=== PATIENT | female | born 1945 | race Caucasian/White ===

== ENCOUNTER 2016-05-24 17:00 | Outpatient (CLI) | payer MEDICARE ==
[2016-05-24 17:33] LABS: Anion Gap 12 mmol/L (10-20); BUN (Urea Nitrogen) 14 mg/dL (9.8-20.1); Calc. Creatinine Clearance 0 mL/min (70-130); Calcium 9.6 mg/dL (7.8-10.44); Carbon Dioxide 27 mmol/L (23-31); Chloride 102 mmol/L (98-107); Estimated GFR-MDRD 76; Glucose 90 mg/dL (80-115); Magnesium 2.4 mg/dL (1.6-2.6); Potassium 4.2 mmol/L (3.5-5.1); Sodium 137 mmol/L (136-145)
== END 2016-05-24 17:01 | disposition home or self-care (01) ==
LOC: HPCALD 17:00
PROVIDERS: ATTEND Family Medicine
DX: R42 Dizziness and giddiness (principal); K91.89 Other postprocedural complications and disorders of digestive system; K21.9 Gastro-esophageal reflux disease without esophagitis; Z98.890 Other specified postprocedural states
CPT/HCPCS: 36415; 80048; 82607; 83735

== ENCOUNTER 2017-05-21 10:22 | Emergency (ER) | payer MEDICARE ==
[2017-05-21] MEDS ORDERED: predniSONE 20 MG TAB ONE (10:34)
== END 2017-05-21 10:45 | disposition home or self-care (01) ==
LOC: BURERS 10:22
DX: L25.9 Unspecified contact dermatitis, unspecified cause (principal); E78.5 Hyperlipidemia, unspecified; I10 Essential (primary) hypertension; Z87.891 Personal history of nicotine dependence
CPT/HCPCS: 99282; J7506

== ENCOUNTER 2017-06-06 12:50 | Inpatient (IN) | payer MEDICARE ==
[2017-06-06] MEDS ORDERED: Prevnar 13-Val Conj/PF 0.5 ML SYRINGE IM ONE (14:45)
[2017-06-06] MEDS ORDERED: Ondansetron ODT 4 MG TAB PO PRN (17:28)
[2017-06-06] MEDS ORDERED: Cyclobenzaprine 10 MG TAB PO PRN ×2 (17:28→18:30)
[2017-06-06] MEDS: Scopolamine 1.5 mg/72 hour Patch TD SCH ×2 (18:05→18:08)
[2017-06-06] MEDS: traMADol HCl 50 MG TAB PO SCH (18:09)
[2017-06-06] MEDS: Acetaminophen 500 MG TAB PO SCH (18:11)
[2017-06-06] MEDS: Enoxaparin Sodium 40 MG/0.4 ML SYRINGE SC SCH (21:01)
[2017-06-06] MEDS: Famotidine 20 MG TAB PO SCH (21:02)
[2017-06-06] MEDS: Senokot S 8.6-50 MG TAB PO SCH (21:03)
[2017-06-06] MEDS: Simvastatin 20 MG TAB PO SCH (21:03)
[2017-06-06] MEDS: Gabapentin 100 MG CAP PO SCH (21:03)
[2017-06-06] MEDS: Ibuprofen 200 MG TAB PO SCH (21:04)
[2017-06-07] MEDS: traMADol HCl 50 MG TAB PO SCH ×4 (00:33→18:35)
[2017-06-07] MEDS: Acetaminophen 500 MG TAB PO SCH ×5 (00:33→18:35)
[2017-06-07] MEDS: Ibuprofen 200 MG TAB PO SCH ×4 (06:33→23:17)
[2017-06-07] MEDS: Polyethylene Glycol 3350 17 GM Packet PO SCH (08:31)
[2017-06-07] MEDS: Lisinopril 10 MG TAB PO SCH (08:32)
[2017-06-07] MEDS: Multivitamin W/ Minerals 1 TAB PO SCH (08:32)
[2017-06-07] MEDS: Senokot S 8.6-50 MG TAB PO SCH ×2 (08:32→20:07)
[2017-06-07] MEDS: Famotidine 20 MG TAB PO SCH ×2 (08:33→20:07)
[2017-06-07] MEDS: Gabapentin 100 MG CAP PO SCH ×3 (08:33→20:07)
[2017-06-07] MEDS: Enoxaparin Sodium 40 MG/0.4 ML SYRINGE SC SCH (20:06)
[2017-06-07] MEDS: Simvastatin 20 MG TAB PO SCH (20:06)
[2017-06-08] MEDS: traMADol HCl 50 MG TAB PO SCH ×5 (06:04→23:58)
[2017-06-08] MEDS: Ibuprofen 200 MG TAB PO SCH ×3 (06:05→22:03)
[2017-06-08] MEDS: Acetaminophen 500 MG TAB PO SCH ×5 (06:06→23:58)
[2017-06-08] MEDS: Polyethylene Glycol 3350 17 GM Packet PO SCH (08:23)
[2017-06-08] MEDS: Lisinopril 10 MG TAB PO SCH (08:24)
[2017-06-08] MEDS: Multivitamin W/ Minerals 1 TAB PO SCH (08:24)
[2017-06-08] MEDS: Famotidine 20 MG TAB PO SCH ×2 (08:24→20:50)
[2017-06-08] MEDS: Gabapentin 100 MG CAP PO SCH ×3 (08:24→20:50)
[2017-06-08] MEDS: Senokot S 8.6-50 MG TAB PO SCH ×2 (08:24→21:23)
[2017-06-08] MEDS ORDERED: Milk Of Magnesia 30 ML UDCUP PO PRN (09:56)
[2017-06-08] MEDS ORDERED: Bisacodyl 10 MG SUPP PR PRN (09:57)
[2017-06-08] MEDS: Enoxaparin Sodium 40 MG/0.4 ML SYRINGE SC SCH (20:50)
[2017-06-08] MEDS: Simvastatin 20 MG TAB PO SCH (20:50)
[2017-06-09] MEDS: Ibuprofen 200 MG TAB PO SCH ×3 (05:18→22:05)
[2017-06-09] MEDS: Acetaminophen 500 MG TAB PO SCH ×3 (05:18→17:30)
[2017-06-09 05:32] LABS: #Eosinphils 0.2 thou/uL (0.0-0.7); #Monocytes 0.5 thou/uL (0.11-0.59); #Neutrophils 3.5 thou/uL (1.40-6.50); %Basophils 0.6 % (0.0-1.0); %Eosinophils 3.8 % (0.0-10.0); %Lymphocytes 19.9 % (21.0-51.0); %Monocytes 8.6 % (0.0-10.0); %Neutrophils 67.1 % (42.0-75.0); Mean Corpuscular HGB CONC 32.7 g/dL (32.0-36.0); Mean Corpuscular Hemoglobin 27.3 pg (27.0-31.0); Mean Corpuscular Volume 83.6 fl (81.0-99.0); Mean Platelet Volume 6.5 fL (7.4-10.4); Platelet Count 228 thou/uL (130-400); RBC Distribution Width 14.7 % (11.5-14.5); Red Blood Cell (RBC) Count 2.92 mill/uL (4.20-5.40); White Blood Cell (WBC) Count 5.3 thou/uL (4.8-10.8)
[2017-06-09 05:37] LABS: Anion Gap 12 mmol/L (10-20); BUN (Urea Nitrogen) 15 mg/dL (9.8-20.1); Calc. Creatinine Clearance 151 mL/min (70-130); Calcium 8.7 mg/dL (7.8-10.44); Carbon Dioxide 27 mmol/L (23-31); Chloride 100 mmol/L (98-107); Estimated GFR-MDRD Greater than 90; Glucose 92 mg/dL (83-110); Potassium 4.4 mmol/L (3.5-5.1); Sodium 135 mmol/L (136-145)
[2017-06-09] MEDS: traMADol HCl 50 MG TAB PO SCH ×3 (06:32→17:30)
[2017-06-09] MEDS: Lisinopril 10 MG TAB PO SCH (08:45)
[2017-06-09] MEDS: Multivitamin W/ Minerals 1 TAB PO SCH (08:45)
[2017-06-09] MEDS: Famotidine 20 MG TAB PO SCH ×2 (08:46→20:20)
[2017-06-09] MEDS: Gabapentin 100 MG CAP PO SCH ×3 (08:46→20:20)
[2017-06-09] MEDS: Polyethylene Glycol 3350 17 GM Packet PO SCH (08:47)
[2017-06-09] MEDS: Senokot S 8.6-50 MG TAB PO SCH ×2 (10:11→20:20)
[2017-06-09] MEDS: Scopolamine 1.5 mg/72 hour Patch TD SCH (17:00)
[2017-06-09] MEDS: Enoxaparin Sodium 40 MG/0.4 ML SYRINGE SC SCH (20:20)
[2017-06-09] MEDS: Simvastatin 20 MG TAB PO SCH (20:20)
[2017-06-10] MEDS: traMADol HCl 50 MG TAB PO SCH ×4 (00:20→18:00)
[2017-06-10] MEDS: Acetaminophen 500 MG TAB PO SCH ×4 (00:20→18:00)
[2017-06-10] MEDS: Ibuprofen 200 MG TAB PO SCH ×3 (05:46→21:41)
[2017-06-10] MEDS: Lisinopril 10 MG TAB PO SCH (08:46)
[2017-06-10] MEDS: Gabapentin 100 MG CAP PO SCH ×3 (08:46→21:42)
[2017-06-10] MEDS: Famotidine 20 MG TAB PO SCH ×2 (08:46→21:42)
[2017-06-10] MEDS: Senokot S 8.6-50 MG TAB PO SCH ×2 (08:47→21:42)
[2017-06-10] MEDS: Polyethylene Glycol 3350 17 GM Packet PO SCH (08:48)
[2017-06-10] MEDS: Multivitamin W/ Minerals 1 TAB PO SCH (08:48)
[2017-06-10] MEDS: Enoxaparin Sodium 40 MG/0.4 ML SYRINGE SC SCH (21:41)
[2017-06-10] MEDS: Simvastatin 20 MG TAB PO SCH (21:42)
[2017-06-10] MEDS ORDERED: Sodium Chloride 0.9% 10 ML ONE (21:49)
[2017-06-11] MEDS: Acetaminophen 500 MG TAB PO SCH ×4 (00:27→17:57)
[2017-06-11] MEDS: traMADol HCl 50 MG TAB PO SCH ×4 (00:27→17:57)
[2017-06-11 05:50] LABS: Hemoglobin 7.9 g/dL (12.0-16.0); Platelet Count 270 thou/uL (130-400)
[2017-06-11] MEDS: Ibuprofen 200 MG TAB PO SCH ×3 (06:14→21:23)
[2017-06-11] MEDS: Gabapentin 100 MG CAP PO SCH ×3 (08:45→21:22)
[2017-06-11] MEDS: Famotidine 20 MG TAB PO SCH ×2 (08:46→21:23)
[2017-06-11] MEDS: Polyethylene Glycol 3350 17 GM Packet PO SCH (08:46)
[2017-06-11] MEDS: Lisinopril 10 MG TAB PO SCH (08:46)
[2017-06-11] MEDS: Multivitamin W/ Minerals 1 TAB PO SCH (08:46)
[2017-06-11] MEDS: Senokot S 8.6-50 MG TAB PO SCH ×2 (08:46→22:03)
[2017-06-11] MEDS: Enoxaparin Sodium 40 MG/0.4 ML SYRINGE SC SCH (21:21)
[2017-06-11] MEDS: Simvastatin 20 MG TAB PO SCH (21:23)
[2017-06-12] MEDS: Acetaminophen 500 MG TAB PO SCH ×4 (00:19→17:08)
[2017-06-12] MEDS: traMADol HCl 50 MG TAB PO SCH ×5 (00:22→18:01)
[2017-06-12] MEDS: Ibuprofen 200 MG TAB PO SCH ×3 (06:08→21:51)
[2017-06-12] MEDS: Multivitamin W/ Minerals 1 TAB PO SCH (09:33)
[2017-06-12] MEDS: Famotidine 20 MG TAB PO SCH ×2 (09:34→20:24)
[2017-06-12] MEDS: Gabapentin 100 MG CAP PO SCH ×3 (09:34→20:24)
[2017-06-12] MEDS: Lisinopril 10 MG TAB PO SCH (09:34)
[2017-06-12] MEDS: Senokot S 8.6-50 MG TAB PO SCH ×2 (09:35→20:33)
[2017-06-12] MEDS: Polyethylene Glycol 3350 17 GM Packet PO SCH (09:35)
[2017-06-12] MEDS: Loperamide HCl 2 MG CAP PO PRN ×2 (12:35→20:23)
[2017-06-12] MEDS: Scopolamine 1.5 mg/72 hour Patch TD SCH (17:07)
[2017-06-12] MEDS: Simvastatin 20 MG TAB PO SCH (20:23)
[2017-06-12] MEDS: Enoxaparin Sodium 40 MG/0.4 ML SYRINGE SC SCH (20:24)
[2017-06-13] MEDS: Acetaminophen 500 MG TAB PO SCH ×4 (00:19→18:27)
[2017-06-13] MEDS: traMADol HCl 50 MG TAB PO SCH ×5 (00:19→18:28)
[2017-06-13 05:06] LABS: Hemoglobin 7.5 g/dL (12.0-16.0); Platelet Count 279 thou/uL (130-400)
[2017-06-13] MEDS: Ibuprofen 200 MG TAB PO SCH ×3 (05:18→21:25)
[2017-06-13] MEDS: Multivitamin W/ Minerals 1 TAB PO SCH (08:40)
[2017-06-13] MEDS: Gabapentin 100 MG CAP PO SCH ×3 (08:40→20:41)
[2017-06-13] MEDS: Lisinopril 10 MG TAB PO SCH (08:41)
[2017-06-13] MEDS: Famotidine 20 MG TAB PO SCH ×2 (08:41→20:41)
[2017-06-13] MEDS: Polyethylene Glycol 3350 17 GM Packet PO SCH (08:43)
[2017-06-13] MEDS: Senokot S 8.6-50 MG TAB PO SCH ×2 (08:44→21:32)
[2017-06-13] MEDS ORDERED: Ferrous Sulfate 325 MG TAB PO SCH (09:00)
[2017-06-13 19:40] LABS: Bilirubin Negative (Negative); Blood, Urine Trace (Negative); Clarity Cloudy (Clear); Glucose, Urine (Dipstick) Negative (Negative); Leukocyte Large (Negative); Nitrite Positive (Negative); Protein, Urine (Dipstick) 30 mg/dL (Neg-Trace); Specific Gravity, Urine 1.015 (1.005-1.030); pH, Urine 5.5 (5.0-9.0)
[2017-06-13 19:47] LABS: Bacteria/HPF 4+ HPF (None Seen); Crystals/HPF None Seen HPF (Negative); Hyaline Casts/LPF NONE SEEN LPF (0-3 Hyaline); Oval Fat Bodies/HPF 1+ HPF (None Seen); RBC/HPF 0-3 HPF (0-3); Renal Epithelial None Seen HPF (0-3); Sperm/HPF None Seen HPF (None Seen); Squamous Epithelial 0-3 HPF (0-3); Transitional Epithelial NONE SEEN HPF (0-3); Trichomonas/HPF None Seen HPF (None Seen); Yeast-All Forms None Seen HPF (None Seen)
[2017-06-13 19:48] LABS: Other Casts/LPF None Seen LPF (0-3 Hyaline)
[2017-06-13] MEDS: Simvastatin 20 MG TAB PO SCH (20:40)
[2017-06-13] MEDS: Ciprofloxacin 500 MG TAB PO SCH (20:41)
[2017-06-13] MEDS: Enoxaparin Sodium 40 MG/0.4 ML SYRINGE SC SCH (20:42)
[2017-06-14] MEDS: Acetaminophen 500 MG TAB PO SCH ×5 (00:18→23:41)
[2017-06-14] MEDS: traMADol HCl 50 MG TAB PO SCH ×5 (00:33→23:42)
[2017-06-14] MEDS: Ibuprofen 200 MG TAB PO SCH ×3 (06:16→22:27)
[2017-06-14] MEDS: Ciprofloxacin 500 MG TAB PO SCH ×2 (06:17→20:45)
[2017-06-14] MEDS: Ferrous Sulfate 325 MG TAB PO SCH ×2 (08:54→10:04)
[2017-06-14] MEDS ORDERED: Docusate Sodium 100 MG/10 ML UDCUP PO SCH (09:00)
[2017-06-14] MEDS: Gabapentin 100 MG CAP PO SCH ×3 (10:02→20:48)
[2017-06-14] MEDS: Lisinopril 10 MG TAB PO SCH (10:02)
[2017-06-14] MEDS: Famotidine 20 MG TAB PO SCH ×2 (10:05→20:49)
[2017-06-14] MEDS: Multivitamin W/ Minerals 1 TAB PO SCH (10:05)
[2017-06-14] MEDS: Senokot S 8.6-50 MG TAB PO SCH ×2 (10:09→20:48)
[2017-06-14] MEDS: Polyethylene Glycol 3350 17 GM Packet PO SCH (10:09)
[2017-06-14] MEDS: Enoxaparin Sodium 40 MG/0.4 ML SYRINGE SC SCH (20:44)
[2017-06-14] MEDS: Simvastatin 20 MG TAB PO SCH (20:46)
[2017-06-15] MEDS: Ibuprofen 200 MG TAB PO SCH ×3 (05:25→21:12)
[2017-06-15] MEDS: Ciprofloxacin 500 MG TAB PO SCH ×2 (05:25→21:11)
[2017-06-15] MEDS: Acetaminophen 500 MG TAB PO SCH ×3 (05:26→18:54)
[2017-06-15] MEDS: traMADol HCl 50 MG TAB PO SCH ×3 (06:09→18:55)
[2017-06-15 06:30] LABS: Platelet Count 309 thou/uL (130-400)
[2017-06-15 06:31] LABS: Calc. Creatinine Clearance 134 mL/min (70-130); Estimated GFR-MDRD Greater than 90
[2017-06-15] MEDS: Ferrous Sulfate 325 MG TAB PO SCH (08:08)
[2017-06-15] MEDS: Lisinopril 10 MG TAB PO SCH (08:08)
[2017-06-15] MEDS: Famotidine 20 MG TAB PO SCH ×2 (08:08→21:14)
[2017-06-15] MEDS: Gabapentin 100 MG CAP PO SCH ×3 (08:08→21:13)
[2017-06-15] MEDS: Multivitamin W/ Minerals 1 TAB PO SCH (08:08)
[2017-06-15] MEDS: Senokot S 8.6-50 MG TAB PO SCH ×2 (08:09→21:12)
[2017-06-15] MEDS: Polyethylene Glycol 3350 17 GM Packet PO SCH (08:09)
[2017-06-15] MEDS: Scopolamine 1.5 mg/72 hour Patch TD SCH (18:53)
[2017-06-15] MEDS: Simvastatin 20 MG TAB PO SCH (21:12)
[2017-06-15] MEDS: Enoxaparin Sodium 40 MG/0.4 ML SYRINGE SC SCH (21:14)
[2017-06-16] MEDS: Acetaminophen 500 MG TAB PO SCH ×5 (00:26→23:42)
[2017-06-16] MEDS: traMADol HCl 50 MG TAB PO SCH ×5 (00:31→23:43)
[2017-06-16] MEDS: Ciprofloxacin 500 MG TAB PO SCH ×2 (05:44→20:46)
[2017-06-16] MEDS: Ibuprofen 200 MG TAB PO SCH ×3 (05:45→21:58)
[2017-06-16] MEDS: Gabapentin 100 MG CAP PO SCH ×3 (08:36→20:48)
[2017-06-16] MEDS: Multivitamin W/ Minerals 1 TAB PO SCH (08:36)
[2017-06-16] MEDS: Polyethylene Glycol 3350 17 GM Packet PO SCH (08:36)
[2017-06-16] MEDS: Ferrous Sulfate 325 MG TAB PO SCH (08:37)
[2017-06-16] MEDS: Lisinopril 10 MG TAB PO SCH (08:37)
[2017-06-16] MEDS: Senokot S 8.6-50 MG TAB PO SCH ×2 (08:37→20:47)
[2017-06-16] MEDS: Famotidine 20 MG TAB PO SCH ×2 (08:37→20:48)
[2017-06-16] MEDS: Simvastatin 20 MG TAB PO SCH (20:49)
[2017-06-16] MEDS: Enoxaparin Sodium 40 MG/0.4 ML SYRINGE SC SCH (20:49)
[2017-06-17] MEDS: Ibuprofen 200 MG TAB PO SCH ×3 (05:38→21:32)
[2017-06-17 05:39] LABS: Hemoglobin 8.6 g/dL (12.0-16.0); Platelet Count 361 thou/uL (130-400)
[2017-06-17] MEDS: Acetaminophen 500 MG TAB PO SCH ×4 (05:39→23:20)
[2017-06-17] MEDS: Ciprofloxacin 500 MG TAB PO SCH ×2 (05:39→19:35)
[2017-06-17 05:45] LABS: Calc. Creatinine Clearance 139 mL/min (70-130); Estimated GFR-MDRD Greater than 90
[2017-06-17] MEDS: traMADol HCl 50 MG TAB PO SCH ×4 (05:45→23:21)
[2017-06-17] MEDS: Lisinopril 10 MG TAB PO SCH (09:25)
[2017-06-17] MEDS: Ferrous Sulfate 325 MG TAB PO SCH (09:25)
[2017-06-17] MEDS: Famotidine 20 MG TAB PO SCH ×2 (09:26→21:31)
[2017-06-17] MEDS: Gabapentin 100 MG CAP PO SCH ×3 (09:26→21:31)
[2017-06-17] MEDS: Multivitamin W/ Minerals 1 TAB PO SCH (09:26)
[2017-06-17] MEDS: Polyethylene Glycol 3350 17 GM Packet PO SCH (09:26)
[2017-06-17] MEDS: Senokot S 8.6-50 MG TAB PO SCH ×2 (09:26→21:32)
[2017-06-17] MEDS: Enoxaparin Sodium 40 MG/0.4 ML SYRINGE SC SCH (21:30)
[2017-06-17] MEDS: Simvastatin 20 MG TAB PO SCH (21:31)
[2017-06-18] MEDS: Ciprofloxacin 500 MG TAB PO SCH ×2 (06:43→20:34)
[2017-06-18] MEDS: Ibuprofen 200 MG TAB PO SCH ×3 (06:43→21:40)
[2017-06-18] MEDS: traMADol HCl 50 MG TAB PO SCH ×4 (06:45→23:25)
[2017-06-18] MEDS: Acetaminophen 500 MG TAB PO SCH ×4 (06:45→23:25)
[2017-06-18] MEDS: Lisinopril 10 MG TAB PO SCH (09:06)
[2017-06-18] MEDS: Multivitamin W/ Minerals 1 TAB PO SCH (09:08)
[2017-06-18] MEDS: Famotidine 20 MG TAB PO SCH ×2 (09:08→21:40)
[2017-06-18] MEDS: Gabapentin 100 MG CAP PO SCH ×3 (09:08→21:39)
[2017-06-18] MEDS: Ferrous Sulfate 325 MG TAB PO SCH (09:08)
[2017-06-18] MEDS: Polyethylene Glycol 3350 17 GM Packet PO SCH (09:09)
[2017-06-18] MEDS: Senokot S 8.6-50 MG TAB PO SCH ×2 (09:09→21:42)
[2017-06-18] MEDS: Scopolamine 1.5 mg/72 hour Patch TD SCH (17:49)
[2017-06-18 18:37] VITALS: BMI 40.3
[2017-06-18] MEDS: Simvastatin 20 MG TAB PO SCH (21:40)
[2017-06-18] MEDS: Enoxaparin Sodium 40 MG/0.4 ML SYRINGE SC SCH (21:42)
[2017-06-19 05:26] LABS: Hemoglobin 8.4 g/dL (12.0-16.0); Platelet Count 307 thou/uL (130-400)
[2017-06-19 05:35] LABS: Calc. Creatinine Clearance 142 mL/min (70-130); Estimated GFR-MDRD Greater than 90
[2017-06-19] MEDS: Ibuprofen 200 MG TAB PO SCH ×3 (06:07→22:24)
[2017-06-19] MEDS: Acetaminophen 500 MG TAB PO SCH ×3 (06:07→17:44)
[2017-06-19] MEDS: Ciprofloxacin 500 MG TAB PO SCH ×2 (06:09→20:39)
[2017-06-19] MEDS: traMADol HCl 50 MG TAB PO SCH ×4 (06:13→17:44)
[2017-06-19] MEDS: Famotidine 20 MG TAB PO SCH ×2 (08:35→20:38)
[2017-06-19] MEDS: Ferrous Sulfate 325 MG TAB PO SCH (08:35)
[2017-06-19] MEDS: Lisinopril 10 MG TAB PO SCH (08:36)
[2017-06-19] MEDS: Gabapentin 100 MG CAP PO SCH ×3 (08:36→20:38)
[2017-06-19] MEDS: Multivitamin W/ Minerals 1 TAB PO SCH (08:36)
[2017-06-19] MEDS: Polyethylene Glycol 3350 17 GM Packet PO SCH (08:39)
[2017-06-19] MEDS: Senokot S 8.6-50 MG TAB PO SCH ×2 (08:39→20:40)
[2017-06-19] MEDS: Simvastatin 20 MG TAB PO SCH (20:37)
[2017-06-19] MEDS: Enoxaparin Sodium 40 MG/0.4 ML SYRINGE SC SCH (20:37)
[2017-06-20] MEDS: Acetaminophen 500 MG TAB PO SCH ×5 (00:51→23:41)
[2017-06-20] MEDS: traMADol HCl 50 MG TAB PO SCH ×5 (00:51→23:41)
[2017-06-20] MEDS: Ciprofloxacin 500 MG TAB PO SCH (05:49)
[2017-06-20] MEDS: Ibuprofen 200 MG TAB PO SCH ×3 (05:54→20:50)
[2017-06-20] MEDS: Ferrous Sulfate 325 MG TAB PO SCH (09:21)
[2017-06-20] MEDS: Famotidine 20 MG TAB PO SCH ×2 (09:34→20:49)
[2017-06-20] MEDS: Lisinopril 10 MG TAB PO SCH (09:34)
[2017-06-20] MEDS: Gabapentin 100 MG CAP PO SCH ×3 (09:34→20:48)
[2017-06-20] MEDS: Polyethylene Glycol 3350 17 GM Packet PO SCH (09:35)
[2017-06-20] MEDS: Senokot S 8.6-50 MG TAB PO SCH ×2 (09:35→20:51)
[2017-06-20] MEDS: Multivitamin W/ Minerals 1 TAB PO SCH (09:35)
[2017-06-20] MEDS: Simvastatin 20 MG TAB PO SCH (20:48)
[2017-06-20] MEDS: Enoxaparin Sodium 40 MG/0.4 ML SYRINGE SC SCH (20:51)
[2017-06-21] MEDS: Ibuprofen 200 MG TAB PO SCH ×3 (05:44→22:46)
[2017-06-21 06:12] LABS: Hemoglobin 8.8 g/dL (12.0-16.0); Platelet Count 334 thou/uL (130-400)
[2017-06-21] MEDS: traMADol HCl 50 MG TAB PO SCH (06:14)
[2017-06-21] MEDS: Acetaminophen 500 MG TAB PO SCH ×3 (06:14→17:53)
[2017-06-21 06:50] LABS: Calc. Creatinine Clearance 140 mL/min (70-130); Estimated GFR-MDRD Greater than 90
[2017-06-21] MEDS: Ferrous Sulfate 325 MG TAB PO SCH (08:24)
[2017-06-21] MEDS: Multivitamin W/ Minerals 1 TAB PO SCH (08:25)
[2017-06-21] MEDS: Senokot S 8.6-50 MG TAB PO SCH ×2 (08:25→20:06)
[2017-06-21] MEDS: Famotidine 20 MG TAB PO SCH ×2 (08:25→20:06)
[2017-06-21] MEDS: Gabapentin 100 MG CAP PO SCH ×3 (08:25→20:06)
[2017-06-21] MEDS: Polyethylene Glycol 3350 17 GM Packet PO SCH (08:25)
[2017-06-21] MEDS: Lisinopril 10 MG TAB PO SCH (08:25)
[2017-06-21] MEDS ORDERED: traMADol HCl 50 MG TAB PO PRN (08:52)
[2017-06-21] MEDS ORDERED: cloNIDine 0.1 MG TAB PO PRN (16:47)
[2017-06-21] MEDS ORDERED: Lisinopril 10 MG TAB PO SCH (16:49)
[2017-06-21] MEDS: Scopolamine 1.5 mg/72 hour Patch TD SCH (17:44)
[2017-06-21] MEDS: Enoxaparin Sodium 40 MG/0.4 ML SYRINGE SC SCH (20:04)
[2017-06-21] MEDS: Simvastatin 20 MG TAB PO SCH (20:05)
[2017-06-22] MEDS: Acetaminophen 500 MG TAB PO SCH ×5 (01:53→23:09)
[2017-06-22] MEDS: Calcium Carbonate 500 MG ChewTAB PO PRN (05:14)
[2017-06-22] MEDS: Ibuprofen 200 MG TAB PO SCH ×3 (05:16→23:09)
[2017-06-22] MEDS: Multivitamin W/ Minerals 1 TAB PO SCH (09:00)
[2017-06-22] MEDS: Famotidine 20 MG TAB PO SCH ×2 (09:00→20:36)
[2017-06-22] MEDS: Gabapentin 100 MG CAP PO SCH ×3 (09:00→20:35)
[2017-06-22] MEDS: Ferrous Sulfate 325 MG TAB PO SCH (09:01)
[2017-06-22] MEDS: Lisinopril 20 MG TAB PO SCH (09:01)
[2017-06-22] MEDS: Polyethylene Glycol 3350 17 GM Packet PO SCH (09:04)
[2017-06-22] MEDS: Senokot S 8.6-50 MG TAB PO SCH ×2 (09:04→20:36)
[2017-06-22] MEDS: Simvastatin 20 MG TAB PO SCH (20:35)
[2017-06-22] MEDS: Enoxaparin Sodium 40 MG/0.4 ML SYRINGE SC SCH (20:36)
[2017-06-23] MEDS: Calcium Carbonate 500 MG ChewTAB PO PRN (04:38)
[2017-06-23 05:17] LABS: Hemoglobin 8.5 g/dL (12.0-16.0); Platelet Count 314 thou/uL (130-400)
[2017-06-23 05:31] LABS: Calc. Creatinine Clearance 147 mL/min (70-130); Estimated GFR-MDRD Greater than 90
[2017-06-23] MEDS: Ibuprofen 200 MG TAB PO SCH (05:53)
[2017-06-23] MEDS: Acetaminophen 500 MG TAB PO SCH ×2 (05:54→12:16)
[2017-06-23] MEDS: Gabapentin 100 MG CAP PO SCH (08:28)
[2017-06-23] MEDS: Multivitamin W/ Minerals 1 TAB PO SCH (08:28)
[2017-06-23] MEDS: Famotidine 20 MG TAB PO SCH (08:28)
[2017-06-23] MEDS: Ferrous Sulfate 325 MG TAB PO SCH (08:29)
[2017-06-23] MEDS: Lisinopril 20 MG TAB PO SCH (08:35)
[2017-06-23] MEDS: Polyethylene Glycol 3350 17 GM Packet PO SCH (08:37)
[2017-06-23] MEDS: Senokot S 8.6-50 MG TAB PO SCH (08:37)
[2017-06-23 08:39] VITALS: BP 155/68
[2017-06-23 09:56] VITALS: TEMP 98.2
== END 2017-06-23 15:15 | disposition home or self-care (01) | DRG 560 ==
LOC: BURMED 13:20
PROVIDERS: ADMIT Family Medicine; ATTEND Family Medicine
DX: S32.591D Other specified fracture of right pubis, subsequent encounter for fracture with routine healing (principal); E87.1 Hypo-osmolality and hyponatremia; S22.32XD Fracture of one rib, left side, subsequent encounter for fracture with routine healing; S82.841D Displaced bimalleolar fracture of right lower leg, subsequent encounter for closed fracture with routine healing; T79.7XXD Traumatic subcutaneous emphysema, subsequent encounter; S32.10XD Unspecified fracture of sacrum, subsequent encounter for fracture with routine healing; E04.2 Nontoxic multinodular goiter; I10 Essential (primary) hypertension; E78.5 Hyperlipidemia, unspecified; Z87.891 Personal history of nicotine dependence; Z79.899 Other long term (current) drug therapy; V49.49XD Driver injured in collision with other motor vehicles in traffic accident, subsequent encounter
CPT/HCPCS: 36415; 80048; 81001; 82565; 85014; 85018; 85025; 85049; 87077; 87086; 87186; 90471; 90670; 94640; A4216; G0009; G8978-GP-CK; G8979-GP-CI; G8987-GO-CK; G8988-GO-CI; J1650; J7620; Q0162

== ENCOUNTER 2017-10-11 10:07 | Outpatient (CLI) | payer MEDICARE ==
--- NOTE | 2017-10-11 17:04 | ULT ---
THYROID SONOGRAM: 10/11/17 HISTORY: Thyroid nodule. FINDINGS: Right thyroid lobe is 4.8 cm. Centrally, a well circumscribed rounded heterogeneously slightly hypoec hoic lesion is 1.3 x 0.9 x 0.8 cm greatest diameters. Isthmus is 0.2 cm. Left thyroid lobe is 3.9 cm. At the inferior pole is a well circumscribed oval isoechoic nodule that is 0.9 x 0.8 x 0.5 cm. Tiny cyst is present centrally. IMPRESSION: Small bilateral solid thyroid nodules, measuring up to 1.3 cm. Please consider followup sonogram in o ne year to evaluate for stability. POS: [facility]
== END 2017-10-11 10:08 | disposition home or self-care (01) ==
LOC: BURULT 10:07
PROVIDERS: ATTEND Otolaryngology Plastic Surgery within the Head & Neck
DX: E04.1 Nontoxic single thyroid nodule (principal); E04.2 Nontoxic multinodular goiter
CPT/HCPCS: 76536

== ENCOUNTER 2018-09-23 12:09 | Emergency (ER) | payer MEDICARE | END 2018-09-23 12:41 | disposition home or self-care (01) | LOC: BURERS 12:09 | DX: S46.211A Strain of muscle, fascia and tendon of other parts of biceps, right arm, initial encounter (principal); E78.5 Hyperlipidemia, unspecified; I10 Essential (primary) hypertension; F32.9 Major depressive disorder, single episode, unspecified; Z87.891 Personal history of nicotine dependence; Z79.82 Long term (current) use of aspirin; Z79.899 Other long term (current) drug therapy; X50.9XXA Other and unspecified overexertion or strenuous movements or postures, initial encounter | CPT/HCPCS: 99283 ==

== ENCOUNTER 2020-04-27 15:52 | Outpatient (CLI) | payer MEDICARE ==
[2020-04-27 21:30] LABS: #Basophils 0.1 thou/uL (0.0-0.2); #Eosinphils 0.1 thou/uL (0.0-0.7); #Monocytes 0.4 thou/uL (0.11-0.59); #Neutrophils 3.6 thou/uL (1.40-6.50); %Basophils 0.8 % (0.0-1.0); %Eosinophils 1.4 % (0.0-10.0); %Lymphocytes 32.5 % (21.0-51.0); %Monocytes 6.4 % (0.0-10.0); %Neutrophils 58.9 % (42.0-75.0); Hemoglobin 13.6 g/dL (12.0-16.0); Mean Corpuscular HGB CONC 32.5 g/dL (32.0-36.0); Mean Corpuscular Hemoglobin 29.7 pg (27.0-31.0); Mean Corpuscular Volume 91.4 fL (78.0-98.0); Mean Platelet Volume 8.6 fL (7.4-10.4); Platelet Count 215 thou/uL (130-400); RBC Distribution Width 12.5 % (11.5-14.5); Red Blood Cell (RBC) Count 4.59 mill/uL (4.20-5.40); White Blood Cell (WBC) Count 6.2 thou/uL (4.8-10.8)
[2020-04-27 21:45] LABS: ALT (SGPT) 17 U/L (8-55); AST (SGOT) 26 U/L (5-34); Albumin 4.4 g/dL (3.4-4.8); Alkaline Phosphatase 95 U/L (40-110); Anion Gap 13 mmol/L (10-20); BUN (Urea Nitrogen) 12 mg/dL (9.8-20.1); Bilirubin, Total 0.3 mg/dL (0.2-1.2); CK (CPK) 238 U/L (29-168); Calc. Creatinine Clearance 0 mL/min (70-130); Calcium 9.5 mg/dL (7.8-10.44); Carbon Dioxide 29 mmol/L (23-31); Cardiac Risk 2.2 (Less than 4.5); Chloride 103 mmol/L (98-107); Cholesterol 170 mg/dl (< 200 Desired); Globulin 2.6 g/dL (2.4-3.5); Glucose 76 mg/dL (83-110); HDL Cholesterol 79 mg/dL (>60 Neg Risk); LDL Cholesterol, Calculated 69 mg/dL; Potassium 4.6 mmol/L (3.5-5.1); Sodium 140 mmol/L (136-145); Triglycerides 112 mg/dL (Less than 150)
== END 2020-04-27 15:53 | disposition home or self-care (01) ==
LOC: HPCALD 15:52
PROVIDERS: ATTEND Family Medicine
DX: Z13.9 Encounter for screening, unspecified (principal); I10 Essential (primary) hypertension; E78.2 Mixed hyperlipidemia
CPT/HCPCS: 36415; 80053; 80061; 82550; 85025

== ENCOUNTER 2020-04-28 11:30 | Outpatient (CLI) | payer MEDICARE ==
--- NOTE | 2020-04-28 19:42 | RAD ---
LEFT KNEE TWO VIEWS: 04/28/20 Osteoarthritis is present consisting of mild medial joint space narrowing and some small osteophytes medially. Somewhat larger osteophytes are present in the patellofemoral joint which has much more art hritic change. No fracture or joint effusion was seen. IMPRESSION: Arthritic changes as noted, worst in the patellofemoral joint. POS: [facility]
--- NOTE | 2020-04-28 19:52 | RAD ---
RIGHT KNEE TWO VIEWS: 04/28/20 Comparison is made with the 06/03/17 study. The degree of joint space narrowing has advanced in the interval, especially in the lateral compartme nt, though narrowing is present in each. Patellofemoral osteophytes are present and are slightly larg er than before. They are not quite as large as those seen in the left knee. No fracture was seen. A v david small joint effusion was suggested in this knee. IMPRESSION: Osteoarthritis. POS: HOME
== END 2020-04-28 11:31 | disposition home or self-care (01) ==
LOC: BURRAD 11:30
PROVIDERS: ATTEND Family Medicine
DX: M25.561 Pain in right knee (principal); M17.0 Bilateral primary osteoarthritis of knee

== ENCOUNTER 2025-02-17 17:17 | Outpatient (CLI) | payer MEDICARE | END 2025-02-17 17:18 | disposition home or self-care (01) | LOC: BURRAD 17:17 | PROVIDERS: ATTEND Family Medicine | DX: M25.511 Pain in right shoulder (principal); M19.011 Primary osteoarthritis, right shoulder; M81.0 Age-related osteoporosis without current pathological fracture ==